=== PATIENT | female | born 1965 | race African-American/Black ===

== ENCOUNTER 2020-07-03 10:09 | Emergency (ER) | payer MEDICAID ==
[~2020-07-03] VITALS: Ht 152.4 cm; Wt 73.0 kg
[~2020-07-03 10:09] MED LIST: NO MEDS
[2020-07-03 10:21] VITALS: BP 120/70
[2020-07-03] MEDS ORDERED: NAPR-681 MT (13:10)
[2020-07-03] MEDS ORDERED: KETOROLAC 60MG/2ML VIAL IM ONE (13:15)
== END 2020-07-03 13:27 | disposition home or self-care (01) ==
LOC: ER 10:09
DX: M75.02 Adhesive capsulitis of left shoulder (principal); N63.0 Unspecified lump in unspecified breast; Z88.8 Allergy status to other drugs, medicaments and biological substances; Z98.890 Other specified postprocedural states
CPT/HCPCS: 96372; 99283; J1885; A4565